=== PATIENT | female | born 1985 | race Caucasian/White ===

== ENCOUNTER → 2017-04-30 | Outpatient (CLI) | payer OTHER ==
[~2017-04-30] MED LIST: ALB6.7R INH; BUPR-474 PO; DICL-192 PO; FLUT1DIS27 IH; GADOBENATE 529MG/1ML 15ML VIAL IVP ONE; LOR5/325 PO; MULT1CAP59 PO; TRAZ-156 PO; VILA20TA PO
--- NOTE | 2017-04-30 17:14 | RADIOLOGY IMAGING REPORT ---
FACILITY: [facility] PATIENT NAME: Amanda Phillips : 1985 MR: [id number] V: [id number] EXAM DATE: ORDERING PHYSICIAN: [facility] TECHNOLOGIST: Location: [facility] Patient: Amanda Phillips : 1985 Visit/Account:[id number] Date of Sevice: 04/30/2017 MRI left knee with and without contrast Indication: Suprapatellar mass. Further characterize Comparison: Routine knee MRI 04/07/2017 is reviewed. Technique: Multiplanar, multisequence MRI examination is performed of the left knee before and after the administration of 14 mL IV gadolinium. FINDINGS: There is an ovoid shaped mass seen within the distal margin of the vastus lateralis muscle proximal to the knee joint. This is oval in shape and measures 1.8 x 1.2 x 2.3 cm in size. This is heterogeneous in signal on the T2-weighted sequences with bright and dark areas identified. On the T 1 sequence in the sagittal plane, there are areas of bright T1 signal identified centrally. These do not demonstrate fat saturation and this is likely related to blood products. Following the administ ration of gadolinium, this lesion demonstrates an intense enhancement pattern. There are some promin ent vessels in the surrounding soft tissues with the most pronounced vessel seen inferior to the lesi on near the superior margin of the lateral retinaculum. At this point, differential for this lesion is broad. This may represent a vascular lesion/malformation such as a soft tissue hemangioma. Other entities such as an intramuscular sarcoma at this point cannot be excluded. Further workup is recom mended. There is no surrounding muscle edema or muscle enhancement. There is no involvement of the underlying femur. At the knee, no joint effusion. See the recent MRI report for further detail concerning the internal structures. This examination is not optimized for evaluation of these structures. IMPRESSION: 1. Indeterminant enhancing mass within the left knee vastus lateralis muscle. Differential at this point is broad and includes both benign and malignant etiologies. This could be a vascular lesion rahman ch as a hemangioma but an enhancing soft tissue sarcoma must be excluded. Further workup recommended to include tissue sampling versus excision. Report Dictated By: Eric Wu at 04/30/2017 4:46 PM Report E-Signed By: Eric Wu at 04/30/2017 5:11 PM WSN:[id number]
== END ==
LOC: MRI 02:52
PROVIDERS: ATTEND Orthopaedic Surgery
DX: R22.42 Localized swelling, mass and lump, left lower limb (principal)
CPT/HCPCS: 73723; A9577

== ENCOUNTER 2017-11-10 01:18 | Day surgery (SDC) | payer OTHER ==
[~2017-11-10] VITALS: Ht 167.6 cm; Wt 68.0 kg
[~2017-11-10 01:18] MED LIST changes: +CLIN30GE15 TP; -GADOBENATE 529MG/1ML 15ML VIAL IVP ONE; +NITR-105 PO; +SPIR25TA80 PO; +THYR130T11 PO; -TRAZ-156 PO; +TRAZ50TA34 PO
[2017-11-10] MEDS: NORMOSOL R SOLN(*) 1000 ML BAG 1,000 ML IV PRN ×3 (06:04→09:15)
[2017-11-10 06:17] VITALS: BP 120/77
[2017-11-10 06:21] LABS: PLATELET COUNT, AUTOMATED 254 K/uL (150-450)
[2017-11-10] MEDS ORDERED: ceFAZolin(*) 1 GM VIAL 1 GM in NS(*) 0.9% 100 ML ADDVANT BAG 100 ML IVPB ONE (06:30)
[2017-11-10] MEDS ORDERED: FAMOTIDINE 20 MG TAB PO ONE (06:30)
[2017-11-10] MEDS ORDERED: LIDOCAINE/SOD BICARB 8.4% SYR ID ONE (06:30)
[2017-11-10] MEDS ORDERED: MIDAZOLAM 2 MG/2 ML VIAL IVP PRN (06:30)
[2017-11-10] MEDS ORDERED: BUPIV/EPI 0.25% 1:200,000 50ML INFIL ONE (07:00)
[2017-11-10] MEDS ORDERED: PHENAZOPYRIDINE 200 MG TAB PO ONE (07:55)
[2017-11-10] MEDS ORDERED: NS(*) 0.9% 100 ML BAG 100 ML ONE (08:02)
[2017-11-10] MEDS ORDERED: fentaNYL CITR 100 MCG/2 ML AMP ONE (09:01)
[2017-11-10] MEDS ORDERED: MEPERIDINE 50 MG/ML SYR ONE (09:07)
[2017-11-10] MEDS ORDERED: LR(*) 1000 ML BAG 1,000 ML IV ONE (09:11)
[2017-11-10] MEDS ORDERED: METOCLOPRAMIDE 10 MG/2 ML SDV IVP PRN (09:15)
--- NOTE | 2017-11-10 09:17 | Post Operative Note ---
Operative Note - ORACLE R12 DEVELOPER Operative Day Date: Nov 10, 2017 Time: 09:14 Physicians Surgeon: Tanvir Anesthesia: General, Cam Diagnosis Pre-Op Diagnosis: Desires sterilization Menorragia and dysmenorrhea Post-Op Diagnosis: Same Procedure Procedure(s): Lscope bilateral salpingectomy Hscope IUD removal Specimen Removed:(Maybe N/A): Bilateral fallopian tubes Complications: Suspect uterine perforation Fluids Fluids: UOP: 300cc Hscope used: 1500cc Hscope deficit: 200cc Estimated Blood Loss: Minimal NOÉ CAZARES MD Nov 10, 2017 09:17
[2017-11-10] MEDS ORDERED: OXYC-865 PO (09:22)
--- NOTE | 2017-11-10 09:26 | Short(Outpt) Discharge Summary ---
Discharge Summary Reason for Hosp/Final Diag: (1) Status post laparoscopic surgery Hospital Course & Plan: Discharge to home. Routine postop orders. Departure Discharge to: Home, Self Care Discharge Instructions Home Meds Active Scripts Oxycodone Hcl/Acetaminophen (PERCOCET 5-325 MG TABLET) 1 Each Tablet, 1-2 TAB PO Q6H Y for PAIN, #30 TAB 0 Refills Prov:NOÉ RAMEY MD 11/10/17 Spironolactone (SPIRONOLACTONE) 25 Mg Tablet, 1 TAB PO QAM for 30 Days, #30 TAB 2 Refills Prov:NEISHA MCMULLEN 07/08/17 Reported Medications Thyroid,Pork (NATURE-THROID) 130 Mg Tablet, 130 MG PO 10/26/17 Nitrofurantoin Monohyd/M-Cryst (MACROBID 100 MG CAPSULE) 100 Mg Capsule, 100 MG PO PRN for intercourse, CAPSULE 10/26/17 Albuterol Sulfate (PROVENTIL HFA) 6.7 Gm Inh, 1-2 PUFF INH PRN, INH 09/25/16 Fluticasone/Salmeterol (ADVAIR 100-50 DISKUS) 1 Each Disk.w.dev, 1 EACH IH BID 11/23/13 Follow up Referrals: SIDEROGRAPHIST - In Two Weeks @ [facility] with Noé Ramey Md Diet: Regular Activity: No Heavy Lifting NOÉ RAMEY MD Nov 10, 2017 09:26
[2017-11-10 09:56] VITALS: BP 106/66
[2017-11-10 10:15] VITALS: BP 108/60
[2017-11-10 10:53] VITALS: BP 105/75
[2017-11-10 10:54] VITALS: BP 111/72
[2017-11-10] MEDS ORDERED: SUGAMMADEX SOD 200 MG/2 ML SDV ONE (12:03)
--- NOTE | 2017-11-10 20:21 | OPERATIVE REPORT 1 ---
EVENT DATE: 11/10/2017 SURGEON: Nina Ramey MD ANESTHESIOLOGIST: Conrado Cam MD ANESTHESIA: General. PREOPERATIVE DIAGNOSES 1. Requests surgical sterilization. 2. Menorrhagia and dysmenorrhea. 3. Intrauterine device with strings not visible on exam. POSTOPERATIVE DIAGNOSES 1. Requests surgical sterilization. 2. Menorrhagia and dysmenorrhea. 3. Intrauterine device with strings not visible on exam. PROCEDURES PERFORMED 1. Laparoscopic bilateral salpingectomy. 2. Diagnostic hysteroscopy with intrauterine device removal. 3. Failed NovaSure ablation. SPECIMENS REMOVED Bilateral fallopian tubes. COMPLICATIONS Inability to open NovaSure ablation device sufficiently to initiate radiofrequency ablation, suspect partial uterine perforation into myometrium. URINE OUTPUT 300 mL HYSTEROSCOPIC FLUID USED 1500 mL HYSTEROSCOPIC FLUID DEFICIT 200 mL ESTIMATED BLOOD LOSS Minimal. INDICATIONS FOR PROCEDURE This patient is a 32-year-old 3, para 3, who initially presented to discuss control options. She desired to have her Mirena intrauterine device removed as she is concerned this is causing her to have acne. She has tried multiple control methods in the past, but did not like them. She is interested in undergoing an endometrial ablation with bilateral salpingectomy for sterilization. She is, therefore, admitted for the same. DESCRIPTION OF PROCEDURE Patient was properly identified and taken to the operating room. She was placed under general anesthesia and placed in dorsal lithotomy position and prepped and draped in the usual fashion for a laparoscopic and vaginal procedure. A timeout was taken, and SCDs were on and functioning. She did receive prophylactic antibiotics prior to the procedure. A speculum was placed to visualize the cervix, which was multiparous and without lesion. The anterior lip was grasped with an Allis clamp and placed on tension in order to advance an acorn uterine manipulator. The bladder was then drained of 300 mL of clear yellow urine. Attention was then turned to the laparoscopic portion of the procedure where the infraumbilical region was infiltrated with 0.25% Marcaine with epinephrine. A 5 mm horizontal incision was made on her prior scar. A Veress needle was then placed into the abdomen and advanced into the intra-abdominal cavity which was confirmed by the double click test. Pneumoperitoneum was then achieved without difficulty. The hysteroscope was then advanced under direct visualization through the infraumbilical incision. This confirmed the intra-abdominal cavity. Surveillance of the superior abdomen revealed a normal-appearing liver and gallbladder. The pelvis also appeared normal. Two lateral incisions were made after infiltration with 0.25% Marcaine, an 11 mm incision on the left and 5 mm incision on the right. These trocars were then advanced under direct visualization. The patient was placed in Trendelenburg position, and bilateral fallopian tubes were able to be removed using the Gyrus by the mesosalpinx from the remaining tissue. Once these were completely cauterized and transected, an Endo Catch bag was advanced into the 11 mm trocar. The Endo Catch bag was closed, and the tubes were removed without difficulty. Using a Fredis-Elvia device, the fascia was closed with an 0 Vicryl under direct visualization. Once adequate fascial closure was confirmed, the incision was closed, insufflation was relieved, and the other two trocars were removed. The three abdominal incisions were then closed using 4-0 Monocryl suture in a subcuticular fashion. The incisions were then covered with Dermabond. Attention was then turned to the vaginal portion of the procedure where the acorn manipulator was removed. A speculum was then replaced into the uterus. The cervix was serially dilated to 7 mm using Hegar dilators without any difficulty. The hysteroscope was then advanced under direct visualization, and the intrauterine cavity was identified. The IUD was noted to be intrauterine with strings wrapped up and around it. These strings were able to be grasped with a hysteroscopic device, and the IUD was removed without difficulty. The hysteroscope was then reintroduced into the uterine cavity and confirmed normal- appearing uterine anatomy without any evidence of polyp or fibroid. At this time, the uterine cavity length was measured to be 4.5 cm. The NovaSure device was then assembled and introduced without any difficulty into the intrauterine cavity. However, the array was attempted to be deployed, the array would not advance to a width larger than 2 cm. This is insufficient to initiate an ablation. Despite multiple attempts at manipulation, the array would not open further. Therefore, the array was retracted and removed. When it was outside of the body, it was able to be deployed and opened to the maximum width without difficulty. The array was then reintroduced without any resistance or difficulty and introduced to the fundus. The array was opened again and still only opened to 2 cm. At this time, I did chose to get slightly more aggressive with pushing in a little bit more to try to allow the array to deploy a larger width. This method was also unsuccessful. However, I felt some loss of resistance which made me concerned for a possible uterine perforation. Therefore, I retracted the array and removed it from the uterus. I then assembled the hysteroscope and reintroduced it without any difficulty into the uterine cavity. There was no loss of fluid deficit at that time; however, at the fundus of the uterus, it appeared that I had likely gone at least through the myometrium. Therefore, I decided to end the procedure without performing an ablation as the array was unable to open to a width that is acceptable to perform a NovaSure ablation. When the Allis clamp was removed from the cervix, there was an area that was bleeding which was repaired using an 0 Vicryl on UR- 6 needle and one suture. The speculum was then removed, and the patient was woken up and moved to the PACU. She tolerated the procedure well. All sponge and needle counts were correct at the end of this procedure. After the patient was recovered and had been sent home, I was able to call her with regards to discuss the inability to perform the NovaSure endometrial ablation. The reasons for this inability to do so were explained to the patient. She would like to proceed with a hydrothermal ablation as soon as possible to help with her menorrhagia as her IUD is now out. This will be arranged as soon as possible. CHANDLER
== END 2017-11-10 09:55 | disposition home or self-care (01) ==
LOC: OR 01:18
PROVIDERS: ATTEND Obstetrics & Gynecology
DX: Z30.2 Encounter for sterilization (principal); N92.0 Excessive and frequent menstruation with regular cycle; N94.6 Dysmenorrhea, unspecified
CPT/HCPCS: 36415; 58661; 84703; 85025; 88302; J0690; J2175; J2250; J3010; J7050; J1100; J2001; J2405; J2704

== ENCOUNTER 2017-12-31 03:26 | Day surgery (SDC) | payer OTHER ==
--- NOTE | 2017-12-30 08:41 | HISTORY AND PHYSICAL ---
DATE OF ADMISSION: December 31, 2017 CHIEF COMPLAINT Heavy and painful menses. HISTORY OF PRESENT ILLNESS This patient is a 32-year-old, 3, para 3 who initially presented to discuss management of dysmenorrhea and menorrhagia in a surgical setting. She also wanted to discuss definitive contraceptive options as she had been using a Mirena IUD, which was worsening acne in her face. At the time of presentation initially, she describes a lifelong history of severely heavy menses and dysmenorrhea. She does have some premenstrual dysphoric disorder. On the IUD she did not have menses, which she did like. However, she wanted this removed due to the concern for worsening acne and does not want anymore children. She would prefer not to have any further menses in the future. She has a history of three deliveries. She has tried combined oral contraceptives in the past and thinks that this worsened her depression and anxiety. She tried NuvaRing in the past but got on this. She is also concerned about weight gain with any estrogen based therapy. She has done a lot of research on endometrial ablations and would like to have this procedure done. She did undergo a procedure on 11/10/2017 by myself with an attempt for NovaSure endometrial ablation, which failed due to inability to deploy the array appropriately. At that procedure, she was able to have a laparoscopic bilateral salpingectomy. She presents today for a hydrothermal ablation to manage her menses. CURRENT MEDICATIONS * Macrobid 100 mg p.r.n. after intercourse. * Spironolactone 25 mg daily. * Albuterol inhaler as needed. * Advair 100/50 Diskus one b.i.d. ALLERGIES CELEBREX causes hives. ASPIRIN causes swelling. SULFA causes swelling. BACTRIM causes swelling. IBUPROFEN causes hives. REVIEW OF SYSTEMS CONSTITUTIONAL: Weight gain. NEUROLOGIC: Denies confusion, dizziness or headaches. CARDIOVASCULAR: Denies chest pain, swelling of legs or feet, fainting. RESPIRATORY: Denies wheezing, shortness of breath or cough. GI: Denies abdominal pain, nausea, vomiting, diarrhea. : See HPI. SKIN: Reports acne. PSYCH: Reports depression and anxiety. PAST MEDICAL HISTORY * Asthma. * Recurrent urinary tract infection. * Anxiety and depression. * Hypothyroid. PAST SURGICAL HISTORY * delivery x3. * Breast reduction. * Laparoscopic bilateral salpingectomy with hysteroscopic IUD removal on November 10, 2017. PAST ADDICTION COUNSELOR HISTORY Patient is a G3, P3 with history of three deliveries. FAMILY HISTORY 1. Paternal grandmother with cervical cancer. 2. Mother with depression. 3. Father with hypertension and hypothyroid. 4. Maternal grandmother with uterine cancer. SOCIAL HISTORY The patient has never smoked. She uses occasional alcohol. She has never used social illicit drugs. 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 She takes care of her three children. PHYSICAL EXAMINATION VITAL SIGNS: Weight 157 pounds, temperature 99.5 degrees, pulse 91, blood pressure 115/75, BMI 24. GENERAL: Well-nourished, well-developed, no acute distress. RESPIRATORY: Clear to auscultation bilaterally, even and unlabored. CARDIOVASCULAR: Regular rate and rhythm without murmur, gallop or rub. ABDOMEN: Nondistended, soft, nontender without mass. : Normal appearing external genitalia. Cervix without lesion. Uterus is retroverted and small. No adnexal or pelvis masses or tenderness. SKIN: Intact without lesions. Significant acne along her facies. EXTREMITIES: No clubbing, cyanosis or edema. NEUROLOGIC: Alert and oriented x3 with steady gait. PSYCHOLOGIC: Appropriate mood and affect with good eye contact. ASSESSMENT AND PLAN This patient is a 32-year-old 3, para 3 who presents for surgical management of menorrhagia and dysmenorrhea. After having an unsuccessful NovaSure endometrial ablation, she is admitted for an attempt with a hydrothermal ablation under direct visualization. We have discussed the risks, benefits and alternatives once again and she desires to proceed with the ablation. CHANDLER
[~2017-12-31] VITALS: Ht 167.6 cm; Wt 68.9 kg
[~2017-12-31 03:26] MED LIST changes: +OXYC-865 PO; +ceFAZolin(*) 1 GM VIAL 1 GM in NS(*) 0.9% 100 ML ADDVANT BAG 100 ML IVPB ONE
[2017-12-31] MEDS ORDERED: ceFAZolin(*) 1 GM VIAL 1 GM in NS(*) 0.9% 100 ML ADDVANT BAG 100 ML IVPB ONE (06:30)
[2017-12-31] MEDS ORDERED: FAMOTIDINE 20 MG TAB PO ONE (06:30)
[2017-12-31] MEDS ORDERED: NORMOSOL R SOLN(*) 1000 ML BAG 1,000 ML IV PRN (06:30)
[2017-12-31] MEDS ORDERED: MIDAZOLAM 2 MG/2 ML VIAL IVP PRN (06:30)
[2017-12-31] MEDS ORDERED: LIDOCAINE/SOD BICARB 8.4% SYR ID ONE (06:30)
[2017-12-31 07:02] VITALS: BP 107/73
[2017-12-31] MEDS ORDERED: fentaNYL CITR 100 MCG/2 ML AMP ONE ×2 (07:07→08:28)
[2017-12-31] MEDS ORDERED: PROPOFOL EMUL(*) 10MG/ML 20 ML 60 ML ONE (07:08)
[2017-12-31] MEDS ORDERED: DEXAMETHASONE SOD 4 MG/ML VIAL ONE ×2 (07:24→08:43)
[2017-12-31] MEDS ORDERED: ONDANSETRON 4 MG/2 ML VIAL ONE (07:33)
[2017-12-31] MEDS ORDERED: PROPOFOL EMUL(*) 10MG/ML 20 ML 20 ML ONE (07:43)
[2017-12-31] MEDS ORDERED: LR(*) 1000 ML BAG 1,000 ML IV ONE (08:56)
--- NOTE | 2017-12-31 08:57 | Short(Outpt) Discharge Summary ---
Discharge Summary Reason for Hosp/Final Diag: (1) Status post endometrial ablation Departure Discharge to: Home, Self Care Discharge Instructions Home Meds Active Scripts Spironolactone (SPIRONOLACTONE) 25 Mg Tablet, 1 TAB PO QAM for 30 Days, #30 TAB 2 Refills Prov:NEISHA MCMULLEN NPC 07/08/17 Reported Medications Thyroid,Pork (NATURE-THROID) 130 Mg Tablet, 130 MG PO 10/26/17 Nitrofurantoin Monohyd/M-Cryst (MACROBID 100 MG CAPSULE) 100 Mg Capsule, 100 MG PO PRN for intercourse, CAPSULE 10/26/17 Albuterol Sulfate (PROVENTIL HFA) 6.7 Gm Inh, 1-2 PUFF INH PRN, INH 09/25/16 Fluticasone/Salmeterol (ADVAIR 100-50 DISKUS) 1 Each Disk.w.dev, 1 EACH IH BID 11/23/13 Follow up Referrals: CAMELID FIBER SORTER - In Two Weeks @ [facility] with NOÉ CAZARES MD FOLLOW UP WITH DR. CAZARES IN 2-3 WEEKS. CALL OFFICE TO SET UP APPOINTMENT. Diet: Regular Activity: As Tolerated NOÉ CAZARES MD Dec 31, 2017 08:57
[2017-12-31] MEDS ORDERED: METOCLOPRAMIDE 10 MG/2 ML SDV IVP PRN (09:00)
--- NOTE | 2017-12-31 09:42 | Post Operative Note ---
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
--- NOTE | 2018-01-04 07:54 | OPERATIVE REPORT 1 ---
EVENT DATE: December 31, 2017 SURGEON: Nina Ramey MD ANESTHESIOLOGIST: Ankit Rogers M.D. ANESTHESIA: General. PREOPERATIVE DIAGNOSIS Menorrhagia. POSTOPERATIVE DIAGNOSIS Menorrhagia. PROCEDURE PERFORMED Hydrothermal endometrial ablation. IV FLUIDS 800 cc. URINE OUTPUT 30 cc. ESTIMATED BLOOD LOSS 50 cc. INDICATIONS This patient is a 32-year-old, 3, para 3 who presents with complaints of menorrhagia and dysmenorrhea. After an unsuccessful NovaSure endometrial ablation in the past, she is admitted for an attempt with hydrothermal ablation under direct visualization. After discussing the risks, benefits and alternatives, she elects to proceed. Please see History and Physical for full details. DESCRIPTION OF PROCEDURE The patient was properly identified and taken to the operating room. She was placed under general anesthesia and placed in the dorsal lithotomy position and prepped and draped in the usual fashion for a vaginal procedure. The uterus was drained of 30 cc of clear yellow urine. Examination revealed an anteverted uterus, approximately 8 cm. A speculum was placed to visualize the cervix, which was noted to be nulliparous without lesion. The anterior lip of the cervix was grasped with a single-tooth tenaculum. An os finder was utilized to navigate the cervical os without difficulty. Using Hanna dilators, the cervix was then dilated to 7 mm without difficulty. The hydrothermal ablation hysteroscope was assembled and introduced under direct visualization into the endometrial cavity. The cavity was surveyed and noted to be within normal limits without any lesions. Cavity assessment was then performed and did pass. The hydrothermal ablation was then enabled and heating to to 80 degrees centigrade when the time of ten minutes was initiated. After ten minutes of burn without any loss of fluid, the cavity and ceiling were then cooled. Further examination with the hysteroscope revealed adequate burn throughout the entire endometrial cavity. The hysteroscope was then removed without difficulty. The tenaculum was removed from the cervix and there was one bleed from the tenaculum site that required an 0 Vicryl suture for hemostasis. Once hemostasis was assured, the speculum was removed and the patient was brought out of the dorsal lithotomy position. The patient tolerated the procedure well and recovered in the Post-Anesthesia Care Unit. All sponge counts were correct at the end of the procedure. [facility]
== END 2017-12-31 09:10 | disposition home or self-care (01) ==
LOC: OR 03:26
PROVIDERS: ATTEND Obstetrics & Gynecology
DX: N92.0 Excessive and frequent menstruation with regular cycle (principal)
CPT/HCPCS: 36415; 58563; 84703; J0690; J1100; J2405; J2704; J3010; J7050

== ENCOUNTER → 2018-07-27 | Outpatient (CLI) | payer OTHER ==
[~2018-07-27] MED LIST changes: +GADOBENATE 529MG/1ML 15ML VIAL IVP ONE; -ceFAZolin(*) 1 GM VIAL 1 GM in NS(*) 0.9% 100 ML ADDVANT BAG 100 ML IVPB ONE
--- NOTE | 2018-07-27 10:48 | RADIOLOGY IMAGING REPORT ---
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 Evaluate operative be d. Comparison: Prior imaging preoperatively April 30, 2017 is reviewed. Technique: Multiplanar, multisequence MRI examination is performed of the left knee before and after the administration of 14 mL IV MultiHance. Findings: Postoperative changes are seen within the distal left thigh within the most distal vastus lateralis m uscle in keeping with interval tumor resection. No suspicious mass or enhancement is seen within the operative bed. There is some postoperative thickening involving the iliotibial band which, by report, was divided at the time of the operative procedure. Along the inferior margin of the operative bed, there is an oval-shaped area of intermediate T1 and bright T2 signal which avidly enhances following the administration of gadolinium. This was seen on the previous examination and appears unchanged. Th is appeared continuous with several prominent veins in this region on the prior exam. Similar finding s again seen on today's study. This is consistent with a prominent enhancing vein. The marrow pattern of the femur is normal. Marrow pattern of the included tibia and fibula is normal. Examination is not optimized for evaluation of the internal structures of the knee. Given this limita tion, menisci, cruciate ligaments and articular surfaces appear intact. There is a trace joint effusi on. IMPRESSION: 1. 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 2. Stable appearing prominent enhancing veins along the anterolateral aspect of the knee. This appear ance is stable since the preoperative study. Report Dictated By: Eric Wu at 07/27/2018 10:22 AM Report E-Signed By: Eric Wu at 07/27/2018 10:44 AM WSN:[id number]
== END ==
LOC: MRI 00:53
PROVIDERS: ATTEND Orthopaedic Surgery
DX: M25.862 Other specified joint disorders, left knee (principal)
CPT/HCPCS: 73723; A9577